=== PATIENT | female | born 1995 | race African-American/Black ===

== ENCOUNTER 2024-03-21 16:29 | Emergency (ER) | payer SELFPAY ==
[~2024-03-21] VITALS: Ht 172.7 cm; Wt 127.0 kg
[2024-03-21 16:42] VITALS: BP 167/116; TEMP 98.6; O2SAT 99
[2024-03-21] MEDS ORDERED: NAPR-1164 PO (17:05)
[2024-03-21] MEDS ORDERED: GABA-532 PO (17:05)
[2024-03-21] MEDS ORDERED: KETOROLAC TROMETHAMINE INJ 30 MG/ML VIAL ONE (17:20)
[2024-03-21] MEDS: KETOROLAC TROMETHAMINE INJ 60 MG/2 ML VIAL IM ONE (17:23)
== END 2024-03-21 17:32 | disposition home or self-care (01) ==
LOC: ER 16:40
DX: M54.31 Sciatica, right side (principal); R20.0 Anesthesia of skin; R20.2 Paresthesia of skin; Z79.899 Other long term (current) drug therapy
CPT/HCPCS: 99283; 96372; J1885